=== PATIENT | female | born 1985 | race Two or more races ===

== ENCOUNTER → 2025-05-08 | Outpatient (CLI) | payer BC, MEDICAID, SELFPAY ==
[2025-05-08 09:06] LABS: HCG Qualitative,Urine Negative
--- NOTE | 2025-05-08 10:00 | XR_ITS ---
Examination: CT brain head without contrast. CT brain head with intravenous contrast 2-D sagittal reconstructions. 2-D coronal reconstructions. Date and time of exam:May 08, 2025 0940 hours INDICATIONS: Right ear tinnitus one week, pulsatile CTDI: vol (mGy): 95.8 DLP: (mGycm):1847 Technique: Axial sections of the brain have been obtained. 5 mm slice thickness images have been obtained. Hand post intravenous administration 50 cc [id number] Low dose protocols were performed. One or more of the following dose reduction techniques were used; automated exposure control, adjustment of the mA and/or KV according to patient size, use of iterative reconstruction technique. Findings: Ventricles are normal in size and configuration. No mass effect upon the ventricular system. No acute hemorrhage either intra or extra-axial. Fourth ventricle midline Cranial vault intact Postcontrast images demonstrate no abnormal enhancing cerebellar or cerebral lesions IMPRESSION: Negative for acute hemorrhage mass effect or midline shift If symptoms persist, consider brain MRI follow-up pre and postcontrast
== END | disposition home or self-care (01) ==
PROVIDERS: PCP Student in an Organized Health Care Education/Training Program; Referring Provider Student in an Organized Health Care Education/Training Program; Visit Provider Radiology Diagnostic Radiology
DX: H93.A9 Pulsatile tinnitus, unspecified ear (principal)
CPT/HCPCS: 70470; 81025; A4649; Q9967